=== PATIENT | female | born 1995 | race Caucasian/White ===

== ENCOUNTER 2024-06-23 14:35 | Emergency (ER) | payer OTHER ==
[~2024-06-23] VITALS: Ht 142.2 cm; Wt 87.1 kg
[2024-06-23 14:47] VITALS: BP 118/77; PULSE 91; RESP 15; TEMP 98.2; O2SAT 95
[2024-06-23] MEDS ORDERED: IBUP100S26 PO (15:17)
[2024-06-23] MEDS ORDERED: KEFSUS PO (15:17)
--- NOTE | 2024-06-23 15:30 | NUR ---
Patient discharged with v/s stable. Written and verbal after care instructions given FOR INSECT BITE Patient alert, oriented and verbalized understanding of instructions. Ambulatory with steady gait. All questions addressed prior to discharge. ID band removed. Patient advised to follow up with PMD. Rx of IBUPROFEN,KEFLEX given. Opportunity to ask questions provided and answered.
== END 2024-06-23 15:30 | disposition home or self-care (01) ==
LOC: MED 14:35
DX: S90.562A Insect bite (nonvenomous), left ankle, initial encounter (principal); Z79.899 Other long term (current) drug therapy; W57.XXXA Bitten or stung by nonvenomous insect and other nonvenomous arthropods, initial encounter; Y93.89 Activity, other specified; Y92.89 Other specified places as the place of occurrence of the external cause; Y99.8 Other external cause status
CPT/HCPCS: 99283